=== PATIENT | male | born 1960 | race Caucasian/White ===

== ENCOUNTER 2024-12-15 12:53 | Outpatient (CLI) | payer MEDICARE, OTHER | END 2024-12-15 12:54 | disposition home or self-care (01) | LOC: CSHDTY/OP 12:53 | PROVIDERS: ATTEND Nurse Practitioner Family | DX: Z71.3 Dietary counseling and surveillance (principal) | CPT/HCPCS: 97802 ==

== ENCOUNTER 2025-03-02 09:48 | Outpatient (CLI) | payer OTHER | END 2025-03-02 09:49 | disposition home or self-care (01) | LOC: CSHULT 09:48 | PROVIDERS: ATTEND Family Medicine | DX: N28.9 Disorder of kidney and ureter, unspecified (principal); N28.1 Cyst of kidney, acquired | CPT/HCPCS: 76770 ==